=== PATIENT | female | born 1950 | race Caucasian/White ===

== ENCOUNTER 2018-05-25 00:05 | Emergency (ER) | payer MEDICARE, OTHER ==
--- NOTE | 2018-05-25 00:09 | ER Report ---
History and Physical Time Seen By MD: 00:08 HPI/ROS CHIEF COMPLAINT: Left facial swelling HISTORY OF PRESENT ILLNESS: 67-year-old female with left facial swelling. She thinks she has a blocked parotid duct infection. She recalls no trauma. She's had some bad teeth. She notes no fever or chills. She denies difficulty swall owing or breathing. Been applying warm compresses, but her face is continued to swell and looked much worse. Patient is a smoker one half pack per day REVIEW OF SYSTEMS: Respiratory: No cough, no dyspnea. Cardiovascular: No chest pain, no palpitations. Gastrointestinal: No vomiting, no abdominal pain. Musculoskeletal: No back pain. Allergies: Coded Allergies: aspirin (Verified Allergy, Severe, anaphalxsis, 05/25/18) codeine (Verified Allergy, Severe, anaphalzsis, 05/25/18) oxycodone (Verified Allergy, Severe, 05/25/18) Home Meds Active Scripts Clindamycin Hcl (CLINDAMYCIN HCL) 300 Mg Capsule, 300 MG PO TID for infection, #30 CAPSULE TAKE 1 CAPSULE EVERY SIX HOURS Prov:LISA BRADSHAW DO 05/25/18 Reported Medications Ranitidine Hcl (ZANTAC) 150 Mg Tablet, 300 MG PO BID, TAB 05/25/18 Reviewed Nurses Notes: Yes Old Medical Records Reviewed: Yes Constitutional Vital Sign - Last 24 Hours 05/25/18 00:10 Temp 99.0 Pulse 121 Resp 16 B/P (MAP) 168/90 Pulse Ox 90 O2 Delivery Room Air Physical Exam General Appearance: The patient is alert, has no immediate need for airway protection and no current signs of toxicity. Vital signs stable, afebrile, pulse ox normal HEENT: Pupils equal and round no injection. TMs normal, TMJs nontender, examination of the face reveals gross soft tissue swelling of the left parotid maxillary area. The skin is somewhat indurated and erythematous. There is no fluctuance noted, oropharynx shows teeth with poor dentition, there is erythema to the parotid duct. Respiratory: Chest is non tender, lungs are clear to auscultation. Cardiac: regular rate and rhythm Gastrointestinal: Abdomen is soft and non tender, no masses, bowel sounds normal. Musculoskeletal: Neck: Neck is supple and non tender. No lymphadenopathy, no induration Extremities have full range of motion and are non tender. Skin: No rashes or lesions. DIFFERENTIAL DIAGNOSIS: After history and physical exam differential diagnosis was considered for cellulitis, dental abscess, facial abscess, parotiditis, sialadenitis, lymphadenitis Medical Decision Making ED Course/Re-evaluation ED Course Patient was admitted to an examination room. H&P was done. The differential diagnoses was considered. Patient with left facial swelling. It is warm to the touch and indurated. She has apparent infection. She'll be covered with clindamycin. Patient's advised warm compresses to the affected area. She is advised to follow-up with Dr. Rosalino Watkins ENT if unimproved in 2-3 days. Decision to Disposition Date: May 25, 2018 Decision to Disposition Time: 00:21 Depart Departure Latest Vital Signs Vital Signs Date Time Temp Pulse Resp B/P (MAP) Pulse Ox O2 Delivery O2 Flow Rate FiO2 05/25/18 00:10 99.0 121 16 168/90 90 Room Air Impression: Primary Impression: Facial swelling Additional Impression: Cellulitis and abscess of face Condition: Improved Disposition: HOME OR SELF-CARE Referrals: ROSALINO WATKINS JR, MD New Scripts Clindamycin Hcl (CLINDAMYCIN HCL) 300 Mg Capsule 300 MG PO TID for infection, #30 CAPSULE TAKE 1 CAPSULE EVERY SIX HOURS Prov: LISA BRADSHAW DO 05/25/18 Patient Instructions: Cellulitis (ED), Sialoadenitis (ED) Additional Instructions: Take ibuprofen 200 mg 3 tablets 3 times a day Apply warm compresses to your right face Follow-up with Dr. Rosalino Watkins if unimproved in 2-3 days Problem Qualifiers LISA BRADSHAW DO May 25, 2018 00:09
[2018-05-25 00:10] VITALS: BP 168/90
[2018-05-25] MEDS ORDERED: CLINDAMYCIN 150 MG CAP PO ONE (00:20)
[2018-05-25] MEDS ORDERED: RANI-366 PO (00:21)
[2018-05-25] MEDS ORDERED: CLIN300C99 PO (00:24)
== END 2018-05-25 00:33 | disposition home or self-care (01) ==
LOC: ER 00:27
DX: L03.211 Cellulitis of face (principal)
CPT/HCPCS: 99283; A9270